=== PATIENT | male | born 1995 | race African-American/Black ===

== ENCOUNTER 2024-04-02 09:25 | Emergency (ER) | payer MEDICAID ==
[~2024-04-02] VITALS: Ht 172.7 cm; Wt 75.0 kg
[2024-04-02 09:27] VITALS: BP 139/73; PULSE 86; RESP 18; TEMP 98; O2SAT 95
[2024-04-02 10:33] LABS: BASOPHILS % 0.8 % (0.0-2.0); HEMATOCRIT. 44.8 % (42.0-52.0); HEMOGLOBIN. 14.8 g/dL (14.0-18.0); LYMPHOCYTES % 16.9 % (20.0-50.0); MEAN CORPUSCULAR HEMOGLOBIN 29.8 pg (28.0-32.0); MEAN CORPUSCULAR HGB CONC 33.1 g/dL (31.0-37.0); MEAN PLATELET VOLUME 8.1 fl (7.4-10.4); MONOCYTES % 4.2 % (2.0-8.0); NEUTROPHILS % 78.1 % (40.0-76.0); PLATELET 338 x1000/uL (130-400); RED BLOOD CELL COUNT 4.98 mill/uL (4.7-6.1); RED CELL DISTRIBUTION WIDTH 14.5 % (11.6-14.6); WHITE BLOOD COUNT 8.9 x1000/uL (4.5-11.0)
[2024-04-02] MEDS ORDERED: LEVE750T4 MT (10:40)
[2024-04-02 10:59] LABS: CHLORIDE 108 mEq/L (98-107); POTASSIUM 5.5 mEq/L (3.5-5.1); SODIUM 138 mEq/L (136-145)
[2024-04-02 11:00] LABS: CALCIUM 9.8 mg/dL (8.7-10.4); CARBON DIOXIDE 24 mEq/L (21-32)
[2024-04-02 11:04] LABS: CREATININE 1.4 mg/dL (0.6-1.3)
[2024-04-02 11:05] LABS: GLUCOSE 118 mg/dL (70-105)
[2024-04-02 11:06] LABS: UREA NITROGEN BLOOD 11 mg/dL (9-23)
[2024-04-02] MEDS: LEVETIRACETAM 500MG TABLET PO ONE (11:26)
== END 2024-04-02 11:53 | disposition home or self-care (01) ==
LOC: ER 09:25
DX: G40.909 Epilepsy, unspecified, not intractable, without status epilepticus (principal); Z91.148 Patient's other noncompliance with medication regimen for other reason
CPT/HCPCS: 36415; 80048; 85025; 99283

== ENCOUNTER 2024-06-26 08:53 | Emergency (ER) | payer OTHER ==
[~2024-06-26] VITALS: Ht 180.3 cm; Wt 100.0 kg
[~2024-06-26 08:53] MED LIST: LEVE750T4 MT
[2024-06-26 08:56] VITALS: O2SAT 100
[2024-06-26 10:47] LABS: CARBON DIOXIDE 29 mEq/L (21-32); CHLORIDE 109 mEq/L (98-107); SODIUM 142 mEq/L (136-145)
[2024-06-26 10:48] LABS: CALCIUM 9.4 mg/dL (8.7-10.4)
[2024-06-26 10:52] LABS: BASOPHILS % 1.1 % (0.0-2.0); EOSINOPHILS % 0.8 % (0.0-5.0); HEMATOCRIT. 46.4 % (42.0-52.0); LYMPHOCYTES % 52.6 % (20.0-50.0); MEAN CORPUSCULAR HEMOGLOBIN 30.2 pg (28.0-32.0); MEAN CORPUSCULAR HGB CONC 32.4 g/dL (31.0-37.0); MEAN CORPUSCULAR VOLUME 93.4 fL (80.0-94.0); MEAN PLATELET VOLUME 8.3 fl (7.4-10.4); MONOCYTES % 10.4 % (2.0-8.0); NEUTROPHILS % 35.1 % (40.0-76.0); PLATELET 349 x1000/uL (130-400); RED BLOOD CELL COUNT 4.97 mill/uL (4.7-6.1); RED CELL DISTRIBUTION WIDTH 14.2 % (11.6-14.6); WHITE BLOOD COUNT 4.3 x1000/uL (4.5-11.0)
[2024-06-26 10:53] LABS: CREATININE 1.2 mg/dL (0.6-1.3); GLUCOSE 94 mg/dL (70-105); UREA NITROGEN BLOOD 13 mg/dL (9-23)
[2024-06-26 10:55] LABS: ETHANOL BLOOD < 10 mg/dL (<10)
[2024-06-26] MEDS: LORAZEPAM 2MG/ML INJ IV ONE (11:00)
[2024-06-26] MEDS: LEVETIRACETAM 500MG PREMIX 100 ML IV ONE ×2 (13:38)
[2024-06-26 14:25] VITALS: BP 129/61; PULSE 89; RESP 15; TEMP 36.78072; O2SAT 100
[2024-06-26] MEDS ORDERED: LEVE750T4 MT (14:27)
== END 2024-06-26 15:00 | disposition home or self-care (01) ==
LOC: ER 08:53
DX: G40.909 Epilepsy, unspecified, not intractable, without status epilepticus (principal)
CPT/HCPCS: 80048; 80320; 85025; 36415; 96365; 99284; 96375; J1953; J2060; G0480